=== PATIENT | female | born 1960 | race Two or more races ===

== ENCOUNTER 2016-11-03 08:18 | Emergency (ER) | payer OTHER ==
[~2016-11-03] VITALS: Ht 157.5 cm; Wt 117.5 kg
[~2016-11-03 08:18] MED LIST: ABILIFY30 MG PO; AGGRENOX1 CAPSULE PO; ALPHAGAN P100 DROP/5 RIGHT EYE; AMOXICILLIN500 MG PO; ANAPROX DS550 M1 PO; ASPIR 8181 M1 PO; ASPIRIN E.C.81 M1 PO; ASPIRIN81 M1 PO; AUGMENTIN875 MG PO; AVELOX400 MG PO; CALCARB 600 W-1 EACH PO; CALCIUM CARB1 TABLET PO; CEPHALEXIN500 MG PO; CETIRIZINE HCL10 M2 PO; CLARITHROMYCIN500 MG PO; CLONAZEPAM0.5 MG PO; COZAAR50 MG PO; CYMBALTA60 MG PO; Combivent IH; Cymbalta PO; DEXILANT30 MG PO; DILAUDID2 MG PO; DIOVAN80 MG PO; GABAPENTIN300 MG PO; GABAPENTIN600 MG PO; GLUCOPHAGE1000 MG PO; GLUCOPHAGE500 MG PO; Glucophage XR,Fortam PO; HUMALOG100 UNIT/1 SC; HUMALOG100 UNIT/2 SC; HYDROCHLOROTHIA25 MG PO; HYDROCODON-ACE1 EAC7 PO; IMITREX25 MG PO; K-DUR20 MEQ PO; KEFLEX500 MG PO; KLONOPIN0.5 M1 PO; KLOR-CON20 MEQ PO; Klonopin PO; LANTUS (UNITS)1 UNIT SC; LANTUS 10100 UNITS/ SC; LANTUS 3 M100 UNITS/ SC; LANTUS 3 M100 UNITS1 SC; LANTUS100 UNIT/1 SQ; LEVEMIR FL100 UNITS/ SC; LIDODERM 5% P1 PATCH TD; LO-DOSE ASPIRIN81 M1 PO; LOPRESSOR25 MG PO; LUMIGAN 0.50 DROP/22 BOTH EYES; MACROBID100 MG PO; METFORMIN HCL1000 M1 PO; METFORMIN HCL500 MG PO; METRONIDAZOLE500 MG PO; MONTELUKAST SOD10 MG PO; MOTRIN600 MG PO; NAPROSYN500 MG PO; NEURONTIN100 MG PO; NEURONTIN600 MG PO; NORCO 5/3251 TABLET PO; NOVOLOG (UNITS1 UNIT SC; NOVOLOG 10100 UNITS/ SC; NOVOLOG PE100 UNITS/ SC; NOVOLOG100 UNIT/2 SQ; OMEPRAZOLE20 MG PO; OMEPRAZOLE40 M1 PO; PERCOCET 5/31 TABLET PO; POTASSIUM CHLO20 ME1 PO; PREDNISONE20 MG PO; PRILOSEC20 MG PO; PRILOSEC40 MG PO; PROVENTIL,2.5 MG/3 M IH; PROVENTIL2.5 MG/3 M IH; Prilosec PO; QUETIAPINE FUMA25 MG PO; RANITIDINE HCL150 MG PO; SERTRALINE HCL50 MG PO; SIMVASTATIN20 M1 PO; SIMVASTATIN20 MG PO; SIMVASTIN; SKELAXIN800 MG PO; SUMATRIPTAN SUC25 MG PO; TRAMADOL HCL50 MG PO; TRAZODONE HCL50 MG PO; ULTRAM50 MG PO; VOLTAREN75 MG PO; ZANAFLEX2 M1 PO; ZANTAC150 MG PO; ZOCOR20 MG PO; ZOFRAN4 MG PO; Zocor PO
[2016-11-03 08:57] LABS: EOSINOPHIL COUNT 0.1 K/uL (0-0.3); HEMATOCRIT 37.4 % (36.0-46.0); IMMATURE GRANULOCYTE (%) 0.1 % (0.0-0.7); IMMATURE GRANULOCYTE COUNT 0.1 K/uL; LYMPHOCYTE COUNT 1.9 K/uL (1.0-2.8); MCH 29.4 PG (29.0-34.0); MCHC 31.8 G/DL (30.0-36.0); MCV 92.3 FL (83-99); MEAN PLAT.VOLUME 11.2 uM^3 (9.5-12.4); MONOCYTE (%) 3.8 % (3-12); MONOCYTE COUNT 0.3 K/uL (0-0.8); NEUTROPHIL (%) 70.6 % (45-76); NEUTROPHIL COUNT 5.6 K/uL (1.8-6.4); PLATELET COUNT 141 K/uL (156-360); RBC DIS.WIDTH-CV 13.5 % (11.8-14.6); RBC DIS.WIDTH-SD 44.2 % (39-53); RED BLOOD COUNT 4.05 M/uL (3.80-5.20)
[2016-11-03 09:05] LABS: INTER. NORMALIZED RATIO 1.1; PROTHROMBIN TIME 10.7 (9.2-11.2)
[2016-11-03 09:08] LABS: CHLORIDE 105 mEq/L (99-109); POTASSIUM 3.9 mEq/L (3.7-5.4); SODIUM 140 mEq/L (136-147)
[2016-11-03 09:10] LABS: GLUCOSE 214 mg/dL (70-99)
[2016-11-03 09:11] LABS: ANION GAP 11 MEQ/L (2-14)
[2016-11-03 09:12] LABS: TOTAL BILIRUBIN 0.4 mg/dL (0.0-1.0)
[2016-11-03 09:13] LABS: ALKALINE PHOSPHATASE 48 IU/L (3-129)
[2016-11-03 09:14] LABS: GFR ESTIMATE (CALCULATED) > 59 mL/min/
[2016-11-03 09:15] LABS: UREA NITROGEN (BUN) 18 mg/dL (9-23)
[2016-11-03 09:17] LABS: LIPASE 18 U/L (1.0-51.0)
[2016-11-03 10:01] LABS: ADD MIUA? YES; BILIRUBIN NEGATIVE; BLOOD MODERATE; COLOR YELLOW ((YELLOW)); GLUCOSE (STRIP) NEGATIVE; KETONES NEGATIVE; LEUKOCYTES NEGATIVE; NITRITE NEGATIVE; PH, URINE 6.5 (5-8); PROTEIN (STRIP) 30; SPECIFIC GRAVITY 1.021 (1.000-1.030)
[2016-11-03 10:16] LABS: BACTERIA 1+; CASTS NONE SEEN /LPF; CRYSTALS NONE SEEN; EPITHELIAL CELLS 1+; MUCUS NONE SEEN; PATHOLOGICAL CAST NONE SEEN; SMALL ROUND CELL NONE SEEN; UCUL ADDED? NO; WHITE BLOOD CELLS 0-5 /HPF (0-5); YEAST-LIKE CELL NONE SEEN
[2016-11-03] MEDS ORDERED: TYLENOL WITH C1 EACH PO (12:21)
[2016-11-03 12:39] VITALS: BP 108/64
== END 2016-11-03 12:53 | disposition home or self-care (01) ==
LOC: EME 08:18
PROVIDERS: Emergency Medicine
DX: N93.9 Abnormal uterine and vaginal bleeding, unspecified (principal); K80.20 Calculus of gallbladder without cholecystitis without obstruction; J45.909 Unspecified asthma, uncomplicated; I10 Essential (primary) hypertension; E78.5 Hyperlipidemia, unspecified; G89.29 Other chronic pain; E11.9 Type 2 diabetes mellitus without complications; Z79.4 Long term (current) use of insulin; Z79.82 Long term (current) use of aspirin; Z87.442 Personal history of urinary calculi
CPT/HCPCS: 74176; 76856; 80053; 81003; 83690; 85025; 85610; 99281; 99285; J7030

== ENCOUNTER 2016-11-14 06:38 | Emergency (ER) | payer OTHER ==
[~2016-11-14] VITALS: Ht 157.5 cm; Wt 118.3 kg
[~2016-11-14 06:38] MED LIST changes: +TYLENOL WITH C1 EACH PO
[2016-11-14 07:34] LABS: HEMATOCRIT 37.2 % (36.0-46.0); MCH 28.7 PG (29.0-34.0); MCHC 31.2 G/DL (30.0-36.0); MCV 92.1 FL (83-99); MEAN PLAT.VOLUME 11.6 uM^3 (9.5-12.4); PLATELET COUNT 139 K/uL (156-360); RBC DIS.WIDTH-CV 13.6 % (11.8-14.6); RBC DIS.WIDTH-SD 45.6 % (39-53); RED BLOOD COUNT 4.04 M/uL (3.80-5.20); WHITE BLOOD COUNT 7.6 K/uL (4.1-10.2)
[2016-11-14 07:44] LABS: ADD MIUA? YES; BILIRUBIN NEGATIVE; BLOOD MODERATE; GLUCOSE (STRIP) NEGATIVE; KETONES NEGATIVE; LEUKOCYTES NEGATIVE; NITRITE NEGATIVE; PH, URINE 6.5 (5-8); PROTEIN (STRIP) 30; SPECIFIC GRAVITY 1.025 (1.000-1.030)
[2016-11-14 07:46] LABS: COLOR LT YELLOW ((YELLOW))
[2016-11-14 08:01] LABS: QUANTITATIVE HCG < 4.0 MIU/ML
[2016-11-14 08:03] LABS: BACTERIA 1+ /HPF; CASTS NONE SEEN /LPF; CRYSTALS NONE SEEN; EPITHELIAL CELLS 1+ /HPF; MUCUS NONE SEEN /LPF; PATHOLOGICAL CAST NONE SEEN; SMALL ROUND CELL NONE SEEN; UCUL ADDED? NO; YEAST-LIKE CELL NONE SEEN
[2016-11-14 08:15] LABS: ANION GAP 10 MEQ/L (2-14); CHLORIDE 103 MEQ/L (99-109); SAMPLE HEMOLYSIS CHECK 0; SAMPLE ICTERIC CHECK 0; SAMPLE LIPEMIA CHECK 0; SODIUM 138 MEQ/L (136-147); TOTAL BILIRUBIN 0.3 MG/DL (0.0-1.0)
[2016-11-14 08:20] LABS: ALKALINE PHOSPHATASE 40 IU/L (3-129); GFR ESTIMATE (CALCULATED) > 59 mL/min/; GLUCOSE 195 mg/dL (70-99); UREA NITROGEN (BUN) 20 mg/dL (9-23)
[2016-11-14] MEDS ORDERED: BENTYL20 MG PO (10:11)
[2016-11-14] MEDS ORDERED: ZOFRAN ODT4 MG PO (10:11)
[2016-11-14] MEDS ORDERED: ULTRAM50 MG PO (10:11)
[2016-11-14 11:08] VITALS: BP 147/82
== END 2016-11-14 11:28 | disposition home or self-care (01) ==
LOC: EME 06:38
DX: R11.2 Nausea with vomiting, unspecified (principal); R19.7 Diarrhea, unspecified; I10 Essential (primary) hypertension; E11.9 Type 2 diabetes mellitus without complications; J45.909 Unspecified asthma, uncomplicated; G89.29 Other chronic pain; Z79.4 Long term (current) use of insulin; Z79.891 Long term (current) use of opiate analgesic; Z79.82 Long term (current) use of aspirin; Z86.14 Personal history of Methicillin resistant Staphylococcus aureus infection; Z87.442 Personal history of urinary calculi
CPT/HCPCS: 76705; 80053; 81003; 84702; 85027; 99281; 99285; J1885; J2405; J7030

== ENCOUNTER 2017-02-03 02:57 | Emergency (ER) | payer OTHER ==
[~2017-02-03] VITALS: Ht 157.5 cm; Wt 123.1 kg
[~2017-02-03 02:57] MED LIST changes: +BENTYL20 MG PO; +ZOFRAN ODT4 MG PO
[2017-02-03 04:04] LABS: HEMATOCRIT 37.7 % (36.0-46.0); MCHC 30.2 G/DL (30.0-36.0); MCV 92.6 FL (83-99); PLATELET COUNT 144 K/uL (156-360); RBC DIS.WIDTH-CV 13.9 % (11.8-14.6); RBC DIS.WIDTH-SD 46.9 % (39-53); RED BLOOD COUNT 4.07 M/uL (3.80-5.20); WHITE BLOOD COUNT 7.8 K/uL (4.1-10.2)
[2017-02-03 04:09] LABS: CHLORIDE 107 mEq/L (99-109); SODIUM 143 mEq/L (136-147)
[2017-02-03 04:11] LABS: GLUCOSE 136 mg/dL (70-99)
[2017-02-03 04:13] LABS: ANION GAP 11 MEQ/L (2-14); TOTAL BILIRUBIN 0.3 mg/dL (0.0-1.0)
[2017-02-03 04:15] LABS: ALKALINE PHOSPHATASE 45 IU/L (3-129); GFR ESTIMATE (CALCULATED) > 59 mL/min/
[2017-02-03 04:16] LABS: UREA NITROGEN (BUN) 20 mg/dL (9-23)
[2017-02-03 04:24] LABS: QUANTITATIVE HCG < 4.0 MIU/ML
[2017-02-03 05:46] LABS: ADD MIUA? YES; BILIRUBIN NEGATIVE; BLOOD SMALL; COLOR YELLOW ((YELLOW)); GLUCOSE (STRIP) NEGATIVE; KETONES NEGATIVE; LEUKOCYTES TRACE; NITRITE NEGATIVE; PROTEIN (STRIP) 100; SPECIFIC GRAVITY 1.019 (1.000-1.030); UROBILINOGEN 0.2 MG/DL (0.2-1.0)
[2017-02-03 05:55] LABS: BACTERIA RARE /HPF; EPITHELIAL CELLS 3+ /HPF; MUCUS 2+ /LPF; RED BLOOD CELLS 0-5 /HPF (0-5); UCUL ADDED? NO
[2017-02-03 06:12] LABS: LIPASE 20 U/L (1.0-51.0)
[2017-02-03] MEDS ORDERED: KEFLEX250 MG PO (07:33)
[2017-02-03] MEDS ORDERED: VENTOLIN HFA18 GM IH (07:33)
[2017-02-03 08:12] VITALS: BP 148/88
== END 2017-02-03 08:14 | disposition home or self-care (01) ==
LOC: EME 02:57
DX: J20.9 Acute bronchitis, unspecified (principal); N30.81 Other cystitis with hematuria; I10 Essential (primary) hypertension; E11.9 Type 2 diabetes mellitus without complications; E78.5 Hyperlipidemia, unspecified; Z87.442 Personal history of urinary calculi; Z86.73 Personal history of transient ischemic attack (TIA), and cerebral infarction without residual deficits; Z79.4 Long term (current) use of insulin; Z88.2 Allergy status to sulfonamides; Z88.6 Allergy status to analgesic agent
CPT/HCPCS: 71020; 80053; 81003; 83690; 84702; 85027; 94640; 99281; 99284

== ENCOUNTER 2017-03-25 14:52 | Emergency (ER) | payer OTHER ==
[~2017-03-25] VITALS: Ht 157.5 cm; Wt 131.7 kg
[~2017-03-25 14:52] MED LIST changes: +KEFLEX250 MG PO; +VENTOLIN HFA18 GM IH
[2017-03-25 15:54] LABS: EOSINOPHIL (%) 0.2 % (0-5); HEMATOCRIT 37.8 % (36.0-46.0); IMMATURE GRANULOCYTE (%) 0.2 % (0.0-0.7); INSTRUMENT ABS NEUTROPHIL CT 6.2 K/uL; LYMPHOCYTE COUNT 1.4 K/uL (1.0-2.8); MCHC 30.2 G/DL (30.0-36.0); MCV 89.4 FL (83-99); MEAN PLAT.VOLUME 11.1 uM^3 (9.5-12.4); MONOCYTE (%) 7.7 % (3-12); MONOCYTE COUNT 0.6 K/uL (0-0.8); NEUTROPHIL (%) 75.2 % (45-76); NEUTROPHIL COUNT 6.2 K/uL (1.8-6.4); PLATELET COUNT 149 K/uL (156-360); RBC DIS.WIDTH-CV 15.1 % (11.8-14.6); RED BLOOD COUNT 4.23 M/uL (3.80-5.20); WHITE BLOOD COUNT 8.2 K/uL (4.1-10.2)
[2017-03-25 16:02] LABS: CHLORIDE 105 mEq/L (99-109); POTASSIUM 4.1 mEq/L (3.7-5.4); SODIUM 138 mEq/L (136-147)
[2017-03-25 16:04] LABS: GLUCOSE 141 mg/dL (70-99)
[2017-03-25 16:06] LABS: ANION GAP 6 MEQ/L (2-14); INTER. NORMALIZED RATIO 1.1; PROTHROMBIN TIME 11.2 (9.2-11.2); PTT 25.9 (25-32)
[2017-03-25 16:08] LABS: GFR ESTIMATE (CALCULATED) > 59 mL/min/
[2017-03-25 16:09] LABS: UREA NITROGEN (BUN) 16 mg/dL (9-23)
[2017-03-25 16:14] LABS: TROP-I INTERPRETATION NEGATIVE; TROPONIN-I 0.03 ng/mL (0.0-0.30)
[2017-03-25] MEDS ORDERED: LEVAQUIN500 MG PO (17:30)
[2017-03-25 17:49] VITALS: BP 136/82
== END 2017-03-25 17:49 | disposition home or self-care (01) ==
LOC: EME 14:52
PROVIDERS: Emergency Medicine
DX: L03.116 Cellulitis of left lower limb (principal); L03.115 Cellulitis of right lower limb; J45.901 Unspecified asthma with (acute) exacerbation; E78.5 Hyperlipidemia, unspecified; I10 Essential (primary) hypertension; E11.9 Type 2 diabetes mellitus without complications; Z79.4 Long term (current) use of insulin; F32.9 Major depressive disorder, single episode, unspecified; F41.9 Anxiety disorder, unspecified; K21.9 Gastro-esophageal reflux disease without esophagitis; Z86.73 Personal history of transient ischemic attack (TIA), and cerebral infarction without residual deficits; Z79.82 Long term (current) use of aspirin; Z86.14 Personal history of Methicillin resistant Staphylococcus aureus infection
CPT/HCPCS: 71010; 80048; 83880; 84484; 85025; 85610; 85730; 93005; 93970; 94640; 99281; 99285

== ENCOUNTER 2017-05-01 17:00 | Inpatient (IN) | payer OTHER ==
[~2017-05-01] VITALS: Ht 157.5 cm; Wt 128.4 kg
[~2017-05-01 17:00] MED LIST changes: +LEVAQUIN500 MG PO
[2017-05-01 17:57] LABS: HEMATOCRIT 23.2 % (36.0-46.0); MCH 26.8 PG (29.0-34.0); MCHC 30.2 G/DL (30.0-36.0); MCV 88.9 FL (83-99); MEAN PLAT.VOLUME 12.1 uM^3 (9.5-12.4); PLATELET COUNT 211 K/uL (156-360); RBC DIS.WIDTH-CV 15.3 % (11.8-14.6); RBC DIS.WIDTH-SD 49.4 % (39-53); RED BLOOD COUNT 2.61 M/uL (3.80-5.20); WHITE BLOOD COUNT 11.7 K/uL (4.1-10.2)
[2017-05-01 18:05] LABS: CHLORIDE 102 mEq/L (99-109); POTASSIUM 4.3 mEq/L (3.7-5.4); SODIUM 139 mEq/L (136-147)
[2017-05-01 18:07] LABS: GLUCOSE 271 mg/dL (70-99)
[2017-05-01 18:08] LABS: ANION GAP 14 MEQ/L (2-14)
[2017-05-01 18:09] LABS: TOTAL BILIRUBIN 0.3 mg/dL (0.0-1.0)
[2017-05-01 18:10] LABS: ALKALINE PHOSPHATASE 53 IU/L (3-129)
[2017-05-01 18:11] LABS: GFR ESTIMATE (CALCULATED) 50 mL/min/
[2017-05-01 18:12] LABS: UREA NITROGEN (BUN) 24 mg/dL (9-23)
[2017-05-01 18:14] LABS: LIPASE 22 U/L (1.0-51.0)
[2017-05-01 20:11] LABS: INTER. NORMALIZED RATIO 1.1
[2017-05-01 20:13] LABS: PTT 30.7 SEC (25-37)
[2017-05-01] MEDS ORDERED: BENTYL20 MG PO (21:11)
[2017-05-01] MEDS ORDERED: LANTUS 10100 UNITS/ SC (21:17)
[2017-05-01] MEDS ORDERED: NOVOLOG100 UNIT/1 SC ×2 (21:18)
[2017-05-01] MEDS ORDERED: FUROSEMIDE20 MG PO (21:19)
[2017-05-01] MEDS ORDERED: K-DUR10 MEQ PO (21:20)
[2017-05-01] MEDS ORDERED: PULMICORT FLE180 MCG IH (21:20)
[2017-05-01] MEDS ORDERED: SIMVASTATIN20 MG PO (21:20)
[2017-05-01] MEDS ORDERED: ZANAFLEX2 MG PO (21:21)
[2017-05-01 21:47] VITALS: BP 143/85
[2017-05-01 22:05] LABS: POINT-OF-CARE METER ID UU14208750
[2017-05-01 23:54] VITALS: BP 140/65
[2017-05-01 23:54] LABS: POINT-OF-CARE METER ID UU14208750
[2017-05-02] VITALS (12 sets, daily range): BP systolic 100–141; BP diastolic 54–71
[2017-05-02 08:41] LABS: HEMATOCRIT 41.9 % (36.0-46.0)
[2017-05-02 16:53] LABS: ADD MIUA? YES; BILIRUBIN NEGATIVE; BLOOD MODERATE; COLOR YELLOW ((YELLOW)); GLUCOSE (STRIP) NEGATIVE; KETONES NEGATIVE; LEUKOCYTES NEGATIVE; NITRITE NEGATIVE; PROTEIN (STRIP) 30; SPECIFIC GRAVITY 1.014 (1.000-1.030); UROBILINOGEN 0.2 MG/DL (0.2-1.0)
[2017-05-02 16:59] LABS: BACTERIA RARE /HPF; EPITHELIAL CELLS RARE /HPF; MUCUS TRACE /LPF; RED BLOOD CELLS 0-5 /HPF (0-5); UCUL ADDED? NO; WHITE BLOOD CELLS 0-5 /HPF (0-5)
[2017-05-02 21:13] LABS: HEMATOCRIT 42.6 % (36.0-46.0); MCV 88.6 FL (83-99)
[2017-05-03 03:54] VITALS: BP 134/84
[2017-05-03 06:45] LABS: EOSINOPHIL (%) 1.3 % (0-5); HEMATOCRIT 42.4 % (36.0-46.0); MCH 26.4 PG (29.0-34.0); MCHC 29.2 G/DL (30.0-36.0); MCV 90.2 FL (83-99); MONOCYTE (%) 7.9 % (3-12); NEUTROPHIL (%) 71.2 % (45-76); RBC DIS.WIDTH-CV 14.9 % (11.8-14.6); RBC DIS.WIDTH-SD 49.7 % (39-53); WHITE BLOOD COUNT 8.3 K/uL (4.1-10.2)
[2017-05-03 06:46] LABS: EOSINOPHIL COUNT 0.1 K/uL (0-0.3); IMMATURE GRANULOCYTE (%) 0.4 % (0.0-0.7); INSTRUMENT ABS NEUTROPHIL CT 5.9 K/uL; LYMPHOCYTE COUNT 1.6 K/uL (1.0-2.8); MONOCYTE COUNT 0.7 K/uL (0-0.8); NEUTROPHIL COUNT 5.9 K/uL (1.8-6.4)
[2017-05-03 06:55] LABS: ALKALINE PHOSPHATASE 46 IU/L (3-129); ANION GAP 7 MEQ/L (2-14); CHLORIDE 100 MEQ/L (99-109); GFR ESTIMATE (CALCULATED) > 59 mL/min/; GLUCOSE 197 mg/dL (70-99); POTASSIUM 4.2 MEQ/L (3.7-5.4); SAMPLE HEMOLYSIS CHECK 0; SAMPLE ICTERIC CHECK 0; SAMPLE LIPEMIA CHECK 0; SODIUM 138 MEQ/L (136-147); TOTAL BILIRUBIN 0.4 MG/DL (0.0-1.0); UREA NITROGEN (BUN) 22 mg/dL (9-23)
[2017-05-03 06:59] LABS: MEAN PLAT.VOLUME 11.9 uM^3 (9.5-12.4); PLAT.SUFFICIENCY DECREASED
[2017-05-03 07:03] LABS: PLATELET COUNT 144 K/uL (156-360)
[2017-05-03 07:12] VITALS: BP 114/60
[2017-05-03] MEDS ORDERED: CIPRODEX OTIC7.5 ML LEFT EAR (08:54)
[2017-05-03] MEDS ORDERED: NOVOLOG PE100 UNITS/ SC (08:54)
[2017-05-03] MEDS ORDERED: LEVEMIR100 UNIT/2 SC (08:54)
== END 2017-05-03 10:57 | disposition home or self-care (01) | DRG 699 ==
LOC: EME 17:00 → EDOF 20:03 → 2EAST 20:03 → ENRESERV 20:08 → 2EAST 21:31
PROVIDERS: Emergency Medicine; Hospitalist; Internal Medicine; Physician Assistant Medical
PROC: 30233N1 Transfusion of Nonautologous Red Blood Cells into Peripheral Vein, Percutaneous Approach (ICD-10-PCS; principal; 2017-05-01)
DX: N36.8 Other specified disorders of urethra (principal); N17.9 Acute kidney failure, unspecified; N18.3 Chronic kidney disease, stage 3 (moderate); N93.8 Other specified abnormal uterine and vaginal bleeding; E11.65 Type 2 diabetes mellitus with hyperglycemia; E66.01 Morbid (severe) obesity due to excess calories; E11.22 Type 2 diabetes mellitus with diabetic chronic kidney disease; I12.9 Hypertensive chronic kidney disease with stage 1 through stage 4 chronic kidney disease, or unspecified chronic kidney disease; J44.9 Chronic obstructive pulmonary disease, unspecified; E78.5 Hyperlipidemia, unspecified; K21.9 Gastro-esophageal reflux disease without esophagitis; I69.354 Hemiplegia and hemiparesis following cerebral infarction affecting left non-dominant side; E86.0 Dehydration; F32.9 Major depressive disorder, single episode, unspecified; F41.9 Anxiety disorder, unspecified; E11.42 Type 2 diabetes mellitus with diabetic polyneuropathy; S80.10XA Contusion of unspecified lower leg, initial encounter; K27.9 Peptic ulcer, site unspecified, unspecified as acute or chronic, without hemorrhage or perforation; Z68.43 Body mass index [BMI] 50.0-59.9, adult
CPT/HCPCS: 70450; 71250; 72125; 72128; 72131; 73590; 74177; 80053; 81003; 82948; 83690; 85014; 85018; 85025; 85027; 85610; 85730; 86900; 86901; 86920; 94640; 94640 76; 94799; 99202; 99281; 99285; C9113; J1815; J7030; P9016

== ENCOUNTER 2017-05-11 15:30 | Inpatient (IN) | payer OTHER ==
[~2017-05-11] VITALS: Ht 157.5 cm; Wt 127.6 kg
[~2017-05-11 15:30] MED LIST changes: +CIPRODEX OTIC7.5 ML LEFT EAR; +FUROSEMIDE20 MG PO; +K-DUR10 MEQ PO; +LEVEMIR100 UNIT/2 SC; +NOVOLOG100 UNIT/1 SC; +PULMICORT FLE180 MCG IH; +ZANAFLEX2 MG PO
[2017-05-11 16:35] LABS: HEMATOCRIT 43.1 % (36.0-46.0); MCH 26.8 PG (29.0-34.0); MCHC 30.4 G/DL (30.0-36.0); MCV 88.1 FL (83-99); MEAN PLAT.VOLUME 11.2 uM^3 (9.5-12.4); PLATELET COUNT 126 K/uL (156-360); RED BLOOD COUNT 4.89 M/uL (3.80-5.20); WHITE BLOOD COUNT 6.9 K/uL (4.1-10.2)
[2017-05-11 16:44] LABS: CHLORIDE 101 mEq/L (99-109); POTASSIUM 4.1 mEq/L (3.7-5.4); SODIUM 140 mEq/L (136-147)
[2017-05-11 16:45] LABS: GLUCOSE 228 mg/dL (70-99)
[2017-05-11 16:47] LABS: ANION GAP 12 MEQ/L (2-14)
[2017-05-11 16:49] LABS: GFR ESTIMATE (CALCULATED) > 59 mL/min/
[2017-05-11 16:50] LABS: UREA NITROGEN (BUN) 16 mg/dL (9-23)
[2017-05-11] MEDS ORDERED: LANTUS 10100 UNITS/ SC ×2 (18:48)
[2017-05-11 21:44] VITALS: BP 153/78
[2017-05-11 23:11] LABS: POINT-OF-CARE METER ID UU14208750
[2017-05-11 23:40] VITALS: BP 140/76
[2017-05-12 04:09] VITALS: BP 135/78
[2017-05-12 06:24] LABS: HEMATOCRIT 41.2 % (36.0-46.0); MCH 27.4 PG (29.0-34.0); MCHC 29.9 G/DL (30.0-36.0); MCV 91.8 FL (83-99); MEAN PLAT.VOLUME 12.2 uM^3 (9.5-12.4); PLATELET COUNT 116 K/uL (156-360); RBC DIS.WIDTH-CV 15.5 % (11.8-14.6); RBC DIS.WIDTH-SD 51.8 % (39-53); RED BLOOD COUNT 4.49 M/uL (3.80-5.20); WHITE BLOOD COUNT 6.1 K/uL (4.1-10.2)
[2017-05-12 06:31] LABS: POINT-OF-CARE METER ID UU14208750
[2017-05-12 06:46] LABS: ALKALINE PHOSPHATASE 41 IU/L (3-129); ANION GAP 3 MEQ/L (2-14); CHLORIDE 100 MEQ/L (99-109); GFR ESTIMATE (CALCULATED) > 59 mL/min/; GLUCOSE 203 mg/dL (70-99); POTASSIUM 4.9 MEQ/L (3.7-5.4); SAMPLE HEMOLYSIS CHECK 0; SAMPLE ICTERIC CHECK 0; SAMPLE LIPEMIA CHECK 0; SODIUM 138 MEQ/L (136-147); TOTAL BILIRUBIN 0.3 MG/DL (0.0-1.0); UREA NITROGEN (BUN) 19 mg/dL (9-23)
[2017-05-12 07:40] VITALS: BP 148/79
[2017-05-12 12:00] VITALS: BP 113/56
[2017-05-12 12:08] LABS: POINT-OF-CARE METER ID UU14208750
[2017-05-12 15:35] VITALS: BP 121/79
[2017-05-12 16:11] LABS: POINT-OF-CARE METER ID UU14208750
[2017-05-12 19:37] VITALS: BP 129/61
[2017-05-12 23:46] VITALS: BP 143/72
[2017-05-13 03:04] VITALS: BP 128/78
[2017-05-13 06:47] LABS: POINT-OF-CARE METER ID UU14208750
[2017-05-13 07:38] LABS: EOSINOPHIL (%) 0 % (0-5); HEMATOCRIT 41.7 % (36.0-46.0); IMMATURE GRANULOCYTE (%) 0.4 % (0.0-0.7); INSTRUMENT ABS NEUTROPHIL CT 6.2 K/uL; LYMPHOCYTE COUNT 0.8 K/uL (1.0-2.8); MCH 27.5 PG (29.0-34.0); MCHC 30.7 G/DL (30.0-36.0); MCV 89.5 FL (83-99); MONOCYTE (%) 3.5 % (3-12); MONOCYTE COUNT 0.3 K/uL (0-0.8); NEUTROPHIL (%) 85.1 % (45-76); NEUTROPHIL COUNT 6.2 K/uL (1.8-6.4); PLATELET COUNT 120 K/uL (156-360); RBC DIS.WIDTH-CV 15.1 % (11.8-14.6); RED BLOOD COUNT 4.66 M/uL (3.80-5.20); WHITE BLOOD COUNT 7.3 K/uL (4.1-10.2)
[2017-05-13 08:06] LABS: ANION GAP 8 MEQ/L (2-14); CHLORIDE 94 MEQ/L (99-109); GFR ESTIMATE (CALCULATED) > 59 mL/min/; SAMPLE HEMOLYSIS CHECK 0; SAMPLE ICTERIC CHECK 0; SAMPLE LIPEMIA CHECK 0
[2017-05-13 08:09] LABS: GLUCOSE 311 mg/dL (70-99); SODIUM 131 MEQ/L (136-147); UREA NITROGEN (BUN) 33 mg/dL (9-23)
[2017-05-13 08:44] VITALS: BP 118/68
[2017-05-13 11:52] LABS: POINT-OF-CARE METER ID UU14208750
[2017-05-13 12:37] LABS: GLUCOSE 393 mg/dL (70-99)
[2017-05-13 16:58] VITALS: BP 168/80
[2017-05-13 17:42] LABS: GLUCOSE 427 mg/dL (70-99)
[2017-05-13 18:45] VITALS: BP 151/80
[2017-05-13 22:06] LABS: POINT-OF-CARE METER ID UU14208750
[2017-05-13 23:37] VITALS: BP 129/58
[2017-05-14 07:18] LABS: ANION GAP 9 MEQ/L (2-14); CHLORIDE 97 MEQ/L (99-109); GFR ESTIMATE (CALCULATED) > 59 mL/min/; SAMPLE HEMOLYSIS CHECK 0; SAMPLE ICTERIC CHECK 0; SAMPLE LIPEMIA CHECK 0; SODIUM 136 MEQ/L (136-147); UREA NITROGEN (BUN) 31 mg/dL (9-23)
[2017-05-14 07:19] LABS: GLUCOSE 180 mg/dL (70-99)
[2017-05-14 07:35] VITALS: BP 134/70
[2017-05-14 08:26] LABS: POINT-OF-CARE METER ID UU14208750
[2017-05-14 11:33] LABS: POINT-OF-CARE METER ID UU14208750
[2017-05-14 15:24] LABS: POINT-OF-CARE METER ID UU14208750
[2017-05-14 16:00] VITALS: BP 106/55
[2017-05-14 22:09] LABS: POINT-OF-CARE METER ID UU14208750
[2017-05-15 00:25] VITALS: BP 154/87
[2017-05-15 06:34] LABS: POINT-OF-CARE METER ID UU14208750
[2017-05-15 08:04] VITALS: BP 159/96
[2017-05-15 11:38] LABS: POINT-OF-CARE METER ID UU14208750
[2017-05-15 11:49] VITALS: BP 171/87
[2017-05-15 14:00] LABS: ANION GAP 8 MEQ/L (2-14); CHLORIDE 94 MEQ/L (99-109); POTASSIUM 4.5 MEQ/L (3.7-5.4); SAMPLE HEMOLYSIS CHECK 0; SAMPLE ICTERIC CHECK 0; SAMPLE LIPEMIA CHECK 0; SODIUM 135 MEQ/L (136-147)
[2017-05-15 14:06] LABS: GFR ESTIMATE (CALCULATED) > 59 mL/min/; GLUCOSE 235 mg/dL (70-99); UREA NITROGEN (BUN) 29 mg/dL (9-23)
[2017-05-15 14:10] LABS: TROP-I INTERPRETATION NEGATIVE; TROPONIN-I 0.03 ng/mL (0.0-0.30)
[2017-05-15 16:22] LABS: POINT-OF-CARE METER ID UU14208750
[2017-05-15 16:25] VITALS: BP 135/76
[2017-05-15 19:22] LABS: TROP-I INTERPRETATION NEGATIVE; TROPONIN-I 0.02 ng/mL (0.0-0.30)
[2017-05-15 21:34] LABS: POINT-OF-CARE METER ID UU14208750
[2017-05-15 23:22] VITALS: BP 131/65
[2017-05-16 01:05] LABS: TROP-I INTERPRETATION NEGATIVE; TROPONIN-I 0.03 ng/mL (0.0-0.30)
[2017-05-16 06:22] LABS: POINT-OF-CARE METER ID UU14208750
[2017-05-16 07:30] VITALS: BP 155/80
[2017-05-16 11:43] LABS: POINT-OF-CARE METER ID UU14208750
[2017-05-16] MEDS ORDERED: ADVAIR HFA120 INHAL1 IH (13:11)
[2017-05-16] MEDS ORDERED: LANTUS 10100 UNITS/ SC (13:11)
[2017-05-16] MEDS ORDERED: PREDNISONE10 MG PO (13:13)
== END 2017-05-16 15:07 | disposition home or self-care (01) | DRG 202 ==
LOC: EME 15:30 → 2EAST 20:16 → EDOF 20:16 → ENRESERV 20:17 → 2EAST 21:20
PROVIDERS: Internal Medicine; Nurse Practitioner Family; Student in an Organized Health Care Education/Training Program
DX: J45.31 Mild persistent asthma with (acute) exacerbation (principal); E87.5 Hyperkalemia; I07.1 Rheumatic tricuspid insufficiency; R16.0 Hepatomegaly, not elsewhere classified; E11.65 Type 2 diabetes mellitus with hyperglycemia; J44.1 Chronic obstructive pulmonary disease with (acute) exacerbation; B37.0 Candidal stomatitis; E66.01 Morbid (severe) obesity due to excess calories; F41.9 Anxiety disorder, unspecified; E78.5 Hyperlipidemia, unspecified; I10 Essential (primary) hypertension; K80.20 Calculus of gallbladder without cholecystitis without obstruction; G47.00 Insomnia, unspecified; M54.30 Sciatica, unspecified side; F32.9 Major depressive disorder, single episode, unspecified; R60.0 Localized edema; G89.29 Other chronic pain; R63.3 Feeding difficulties; G40.909 Epilepsy, unspecified, not intractable, without status epilepticus; M54.9 Dorsalgia, unspecified; K21.9 Gastro-esophageal reflux disease without esophagitis; M19.90 Unspecified osteoarthritis, unspecified site; Z77.22 Contact with and (suspected) exposure to environmental tobacco smoke (acute) (chronic); Z79.4 Long term (current) use of insulin; Z91.14 Patient's other noncompliance with medication regimen; Z86.73 Personal history of transient ischemic attack (TIA), and cerebral infarction without residual deficits; Z88.6 Allergy status to analgesic agent; Z88.2 Allergy status to sulfonamides; S20.219D Contusion of unspecified front wall of thorax, subsequent encounter; Z87.442 Personal history of urinary calculi
CPT/HCPCS: 71010; 71020; 80048; 80053; 82948; 83880; 84484; 84999; 85025; 85027; 93005; 93306; 94640; 94640 76; 94799; 99202; 99281; 99285; J0456; J1650; J1815; J1940; J2920; J7030; J7512; J7644

== ENCOUNTER 2017-07-10 13:43 | Emergency (ER) | payer OTHER ==
[~2017-07-10] VITALS: Ht 157.5 cm; Wt 122.7 kg
[~2017-07-10 13:43] MED LIST changes: +ADVAIR HFA120 INHAL1 IH; +PREDNISONE10 MG PO
[2017-07-10 16:06] VITALS: BP 124/62
== END 2017-07-10 16:09 | disposition home or self-care (01) ==
LOC: EME 13:43
DX: M77.11 Lateral epicondylitis, right elbow (principal); E11.40 Type 2 diabetes mellitus with diabetic neuropathy, unspecified; Z79.4 Long term (current) use of insulin; J45.909 Unspecified asthma, uncomplicated; Z86.73 Personal history of transient ischemic attack (TIA), and cerebral infarction without residual deficits; Z79.82 Long term (current) use of aspirin; Z88.8 Allergy status to other drugs, medicaments and biological substances
CPT/HCPCS: 73080; 99281; 99284

== ENCOUNTER 2017-07-30 13:06 | Emergency (ER) | payer OTHER ==
[~2017-07-30] VITALS: Ht 157.5 cm; Wt 124.4 kg
[2017-07-30 14:13] VITALS: BP 125/96
== END 2017-07-30 14:10 | disposition home or self-care (01) ==
LOC: EME 13:06
DX: M77.11 Lateral epicondylitis, right elbow (principal); I10 Essential (primary) hypertension; E78.5 Hyperlipidemia, unspecified; E11.40 Type 2 diabetes mellitus with diabetic neuropathy, unspecified; Z79.4 Long term (current) use of insulin; Z79.82 Long term (current) use of aspirin
CPT/HCPCS: 99281; 99283

== ENCOUNTER 2017-08-27 21:21 | Inpatient (IN) | payer OTHER ==
[~2017-08-27] VITALS: Ht 157.5 cm; Wt 126.9 kg
[2017-08-27 22:07] LABS: EOSINOPHIL (%) 0.1 % (0-5); HEMATOCRIT 33.3 % (36.0-46.0); IMMATURE GRANULOCYTE (%) 0.4 % (0.0-0.7); INSTRUMENT ABS NEUTROPHIL CT 5.2 K/uL; LYMPHOCYTE COUNT 0.9 K/uL (1.0-2.8); MCH 29.7 PG (29.0-34.0); MCHC 31.2 G/DL (30.0-36.0); MCV 95.1 FL (83-99); MEAN PLAT.VOLUME 11.4 uM^3 (9.5-12.4); MONOCYTE (%) 7.9 % (3-12); MONOCYTE COUNT 0.5 K/uL (0-0.8); NEUTROPHIL (%) 78.1 % (45-76); NEUTROPHIL COUNT 5.2 K/uL (1.8-6.4); PLATELET COUNT 123 K/uL (156-360); RBC DIS.WIDTH-CV 13.2 % (11.8-14.6); RBC DIS.WIDTH-SD 45.9 % (39-53); WHITE BLOOD COUNT 6.7 K/uL (4.1-10.2)
[2017-08-27 22:15] LABS: CHLORIDE 103 mEq/L (99-109); POTASSIUM 3.7 mEq/L (3.7-5.4); SODIUM 137 mEq/L (136-147)
[2017-08-27 22:17] LABS: GLUCOSE 115 mg/dL (70-99)
[2017-08-27 22:18] LABS: ANION GAP 8 MEQ/L (2-14)
[2017-08-27 22:21] LABS: GFR ESTIMATE (CALCULATED) > 59 mL/min/
[2017-08-27 22:22] LABS: UREA NITROGEN (BUN) 14 mg/dL (9-23)
[2017-08-27 22:40] LABS: MAGNESIUM 1.6 mg/dL (1.3-2.7)
[2017-08-27 22:48] LABS: ADD MIUA? YES; BILIRUBIN NEGATIVE; BLOOD SMALL; COLOR YELLOW ((YELLOW)); GLUCOSE (STRIP) NEGATIVE; KETONES NEGATIVE; LEUKOCYTES NEGATIVE; NITRITE NEGATIVE; PROTEIN (STRIP) 100; SPECIFIC GRAVITY 1.013 (1.000-1.030); UROBILINOGEN 0.2 MG/DL (0.2-1.0)
[2017-08-27 22:53] LABS: BACTERIA RARE /HPF; EPITHELIAL CELLS RARE /HPF; MUCUS NONE SEEN /LPF; RED BLOOD CELLS 0-5 /HPF (0-5); UCUL ADDED? NO; WHITE BLOOD CELLS 0-5 /HPF (0-5)
[2017-08-28] MEDS ORDERED: K-DUR10 MEQ PO (01:18)
[2017-08-28] MEDS ORDERED: ATARAX,VISTARIL25 MG PO (01:19)
[2017-08-28] MEDS ORDERED: RANITIDINE HCL150 MG PO (01:20)
[2017-08-28] MEDS ORDERED: NOVOLOG PE100 UNITS/ SC ×3 (01:30→01:31)
[2017-08-28 03:55] VITALS: BP 124/60
[2017-08-28 05:08] VITALS: BP 110/75
[2017-08-28 07:19] VITALS: BP 122/68
[2017-08-28 08:25] LABS: POINT-OF-CARE METER ID UU14162513
[2017-08-28 12:29] VITALS: BP 119/59
[2017-08-28 12:42] LABS: POINT-OF-CARE METER ID UU14162513
[2017-08-28] MEDS ORDERED: AGGRENOX1 CAPSULE PO (17:23)
[2017-08-28 17:49] LABS: POINT-OF-CARE METER ID UU14162513
[2017-08-28 17:54] VITALS: BP 168/82
[2017-08-28 19:00] VITALS: BP 134/64
[2017-08-28 21:11] LABS: POINT-OF-CARE METER ID UU14162513
[2017-08-29] VITALS: BP 120/65
[2017-08-29 03:19] VITALS: BP 118/58
[2017-08-29 05:37] LABS: HEMATOCRIT 35.8 % (36.0-46.0); MCH 29.3 PG (29.0-34.0); MCHC 30.7 G/DL (30.0-36.0); MCV 95.2 FL (83-99); MEAN PLAT.VOLUME 11.3 uM^3 (9.5-12.4); PLATELET COUNT 126 K/uL (156-360); RBC DIS.WIDTH-CV 13.2 % (11.8-14.6); RBC DIS.WIDTH-SD 46.8 % (39-53); RED BLOOD COUNT 3.76 M/uL (3.80-5.20); WHITE BLOOD COUNT 5.1 K/uL (4.1-10.2)
[2017-08-29 06:05] LABS: ANION GAP 7 MEQ/L (2-14); CHLORIDE 100 MEQ/L (99-109); GFR ESTIMATE (CALCULATED) 55 mL/min/; GLUCOSE 284 mg/dL (70-99); POTASSIUM 4.5 MEQ/L (3.7-5.4); SAMPLE HEMOLYSIS CHECK 0; SAMPLE ICTERIC CHECK 0; SAMPLE LIPEMIA CHECK 0; SODIUM 135 MEQ/L (136-147); UREA NITROGEN (BUN) 26 mg/dL (9-23)
[2017-08-29 08:36] LABS: POINT-OF-CARE METER ID UU13113700
[2017-08-29 12:41] VITALS: BP 133/74
[2017-08-29 12:42] LABS: POINT-OF-CARE METER ID UU14162513
[2017-08-29 16:25] VITALS: BP 106/59
[2017-08-29 17:25] LABS: POINT-OF-CARE METER ID UU13113700
[2017-08-29 19:30] VITALS: BP 125/71
[2017-08-29 21:27] LABS: POINT-OF-CARE METER ID UU14162513
[2017-08-29 23:51] VITALS: BP 136/64
[2017-08-30] VITALS (7 sets, daily range): BP systolic 118–142; BP diastolic 55–76
[2017-08-30 08:34] LABS: POINT-OF-CARE METER ID UU13113700
[2017-08-30 08:49] LABS: METH RESISTANT S AUREUS PCR NEGATIVE (NEGATIVE)
[2017-08-30 08:51] LABS: PROBE CHECK PASS; SPECIMEN PROCESSING CONTROL PASS
[2017-08-30 13:14] LABS: GLUCOSE 433 mg/dL (70-99)
[2017-08-30 14:20] LABS: POINT-OF-CARE METER ID UU13113831
[2017-08-30 17:04] LABS: GLUCOSE 488 mg/dL (70-99)
[2017-08-30 18:25] LABS: POINT-OF-CARE METER ID UU14162513
[2017-08-30 21:01] LABS: POINT-OF-CARE METER ID UU14162513
[2017-08-31 02:09] LABS: POINT-OF-CARE METER ID UU14162513
[2017-08-31 03:10] VITALS: BP 144/75
[2017-08-31 05:25] LABS: HEMATOCRIT 35.1 % (36.0-46.0); MCH 30.1 PG (29.0-34.0); MCHC 31.1 G/DL (30.0-36.0); MEAN PLAT.VOLUME 11.8 uM^3 (9.5-12.4); PLATELET COUNT 118 K/uL (156-360); RBC DIS.WIDTH-CV 13.3 % (11.8-14.6); RBC DIS.WIDTH-SD 47.7 % (39-53); RED BLOOD COUNT 3.62 M/uL (3.80-5.20); WHITE BLOOD COUNT 11.6 K/uL (4.1-10.2)
[2017-08-31 05:48] LABS: ANION GAP 5 MEQ/L (2-14); CHLORIDE 99 MEQ/L (99-109); GFR ESTIMATE (CALCULATED) 49 mL/min/; GLUCOSE 365 mg/dL (70-99); POTASSIUM 5.2 MEQ/L (3.7-5.4); SAMPLE HEMOLYSIS CHECK 0; SAMPLE ICTERIC CHECK 0; SAMPLE LIPEMIA CHECK 0; SODIUM 134 MEQ/L (136-147); UREA NITROGEN (BUN) 35 mg/dL (9-23)
[2017-08-31 09:00] LABS: POINT-OF-CARE METER ID UU13113700
[2017-08-31 11:56] VITALS: BP 133/65
[2017-08-31 12:29] LABS: POINT-OF-CARE METER ID UU14162513
[2017-08-31 16:16] VITALS: BP 125/69
[2017-08-31 17:13] LABS: POINT-OF-CARE METER ID UU14162513
[2017-08-31 20:00] VITALS: BP 142/67
[2017-08-31 21:37] LABS: POINT-OF-CARE METER ID UU13113700
[2017-08-31 23:41] VITALS: BP 147/70
[2017-09-01 03:47] VITALS: BP 127/67
[2017-09-01 07:26] VITALS: BP 135/70
[2017-09-01 08:36] LABS: POINT-OF-CARE METER ID UU13113700
[2017-09-01] MEDS ORDERED: LEVOFLOXACIN500 MG PO (10:57)
[2017-09-01] MEDS ORDERED: HYDROCORTISONE30 G2 PR (11:00)
[2017-09-01] MEDS ORDERED: PREDNISONE10 MG PO (11:05)
[2017-09-01 11:49] VITALS: BP 138/65
[2017-09-01 15:18] VITALS: BP 143/67
[2017-09-02 21:22] LABS: POINT-OF-CARE METER ID UU13113831
[2017-09-02 21:22] LABS: POINT-OF-CARE METER ID UU13113700
[2017-09-02 21:48] LABS: POINT-OF-CARE METER ID UU13113831
== END 2017-09-01 16:17 | disposition home health service (06) | DRG 189 ==
LOC: EME → EDBD 21:21 → EME 21:21 → EDOF 08-28 02:36 → 5WEST 08-28 02:36 → ENRESERV 08-28 02:37 → 5WEST 08-28 03:29 → ENPENDDIS 09-01 → ENRESERV 09-01 00:24 → CANRESERV 09-01 00:24 → 5WEST 09-01 16:17
PROVIDERS: Emergency Medicine; Hospitalist; Internal Medicine
PROC: 5A09357 Assistance with Respiratory Ventilation, Less than 24 Consecutive Hours, Continuous Positive Airway Pressure (ICD-10-PCS; principal; 2017-08-28)
DX: J96.21 Acute and chronic respiratory failure with hypoxia (principal); J44.1 Chronic obstructive pulmonary disease with (acute) exacerbation; J45.31 Mild persistent asthma with (acute) exacerbation; J44.0 Chronic obstructive pulmonary disease with (acute) lower respiratory infection; J20.9 Acute bronchitis, unspecified; E11.22 Type 2 diabetes mellitus with diabetic chronic kidney disease; E11.65 Type 2 diabetes mellitus with hyperglycemia; T38.0X5A Adverse effect of glucocorticoids and synthetic analogues, initial encounter; I12.9 Hypertensive chronic kidney disease with stage 1 through stage 4 chronic kidney disease, or unspecified chronic kidney disease; N18.3 Chronic kidney disease, stage 3 (moderate); G47.33 Obstructive sleep apnea (adult) (pediatric); E78.5 Hyperlipidemia, unspecified; K21.9 Gastro-esophageal reflux disease without esophagitis; F32.9 Major depressive disorder, single episode, unspecified; M19.90 Unspecified osteoarthritis, unspecified site; E66.01 Morbid (severe) obesity due to excess calories; Z68.43 Body mass index [BMI] 50.0-59.9, adult; Z99.81 Dependence on supplemental oxygen; Z79.4 Long term (current) use of insulin; Z79.82 Long term (current) use of aspirin; Z87.442 Personal history of urinary calculi; Z86.73 Personal history of transient ischemic attack (TIA), and cerebral infarction without residual deficits; Z88.2 Allergy status to sulfonamides; Z88.5 Allergy status to narcotic agent
CPT/HCPCS: 71020; 80048; 81003; 82948; 83605; 83735; 83880; 84999; 85025; 85027; 87040; 87502; 87641; 94640; 94640 76; 94660; 94667; 94668; 94760; 94799; 99202; 99281; 99284; G8978 GP CH; G8979 GP CH; G8980 GP CH; J1650; J1815; J1940; J1956; J2920; J2930; J7030

== ENCOUNTER 2018-01-02 08:15 | Emergency (ER) | payer OTHER ==
[~2018-01-02] VITALS: Ht 157.5 cm; Wt 124.5 kg
[~2018-01-02 08:15] MED LIST changes: +ATARAX,VISTARIL25 MG PO; +HYDROCORTISONE30 G2 PR; +LEVOFLOXACIN500 MG PO
[2018-01-02 09:18] LABS: BASOPHIL (%) 0.3 % (0-1); EOSINOPHIL (%) 0.6 % (0-5); HEMATOCRIT 35.1 % (36.0-46.0); HEMOGLOBIN 11.1 G/DL (11.9-15.5); IMMATURE GRANULOCYTE (%) 0.4 % (0.0-0.7); LYMPHOCYTE (%) 16.7 % (15-42); LYMPHOCYTE COUNT 1.2 K/uL (1.0-2.8); MCH 29.5 PG (29.0-34.0); MCHC 31.6 G/DL (30.0-36.0); MCV 93.4 FL (83-99); MONOCYTE (%) 5.5 % (3-12); MONOCYTE COUNT 0.4 K/uL (0-0.8); NEUTROPHIL (%) 76.5 % (45-76); NEUTROPHIL COUNT 5.4 K/uL (1.8-6.4); PLATELET COUNT 127 K/uL (156-360); RBC DIS.WIDTH-CV 12.9 % (11.8-14.6); RBC DIS.WIDTH-SD 44.3 % (39-53); RED BLOOD COUNT 3.76 M/uL (3.80-5.20); WHITE BLOOD COUNT 7.1 K/uL (4.1-10.2)
[2018-01-02 09:28] LABS: CHLORIDE 102 mEq/L (99-109); POTASSIUM 4.1 mEq/L (3.7-5.4); SODIUM 140 mEq/L (136-147)
[2018-01-02 09:29] LABS: GLUCOSE 121 mg/dL (70-99)
[2018-01-02 09:33] LABS: CREATININE 0.8 mg/dL (0.6-1.3); GFR ESTIMATE (CALCULATED) > 59 mL/min/
[2018-01-02 09:34] LABS: UREA NITROGEN (BUN) 12 mg/dL (9-23)
[2018-01-02 09:44] LABS: APPEARANCE SL.HAZY ((CLEAR)); BILIRUBIN NEGATIVE; BLOOD SMALL; COLOR YELLOW ((YELLOW)); GLUCOSE (STRIP) NEGATIVE; KETONES NEGATIVE; LEUKOCYTES NEGATIVE; NITRITE NEGATIVE; PROTEIN (STRIP) 100; SPECIFIC GRAVITY 1.012 (1.000-1.030); UROBILINOGEN 0.2 MG/DL (0.2-1.0)
[2018-01-02 09:48] LABS: BACTERIA NONE SEEN /HPF; EPITHELIAL CELLS 1+ /HPF; MUCUS TRACE /LPF; RED BLOOD CELLS 0-5 /HPF (0-5); WHITE BLOOD CELLS 0-5 /HPF (0-5)
[2018-01-02] MEDS ORDERED: PERCOCET 5/31 TABLET PO (12:03)
[2018-01-02 12:53] VITALS: BP 142/77
[2018-01-03] MEDS ORDERED: ULTRAM50 MG PO (03:31)
== END 2018-01-02 12:55 | disposition home or self-care (01) ==
LOC: EME 08:15
PROVIDERS: Emergency Medicine
DX: K80.20 Calculus of gallbladder without cholecystitis without obstruction (principal); M48.061 Spinal stenosis, lumbar region without neurogenic claudication; N85.8 Other specified noninflammatory disorders of uterus; E11.9 Type 2 diabetes mellitus without complications; I10 Essential (primary) hypertension; K21.9 Gastro-esophageal reflux disease without esophagitis; E78.5 Hyperlipidemia, unspecified; F41.9 Anxiety disorder, unspecified; F32.9 Major depressive disorder, single episode, unspecified; Z99.81 Dependence on supplemental oxygen; Z79.4 Long term (current) use of insulin; Z79.82 Long term (current) use of aspirin; Z79.51 Long term (current) use of inhaled steroids; Z87.440 Personal history of urinary (tract) infections; Z86.73 Personal history of transient ischemic attack (TIA), and cerebral infarction without residual deficits; Z87.442 Personal history of urinary calculi; Z86.14 Personal history of Methicillin resistant Staphylococcus aureus infection; Z90.49 Acquired absence of other specified parts of digestive tract; Z88.5 Allergy status to narcotic agent; Z88.2 Allergy status to sulfonamides; Z88.6 Allergy status to analgesic agent
CPT/HCPCS: 74176; 80048; 81003; 85025; 99281; 99285; J1885; J2405; J7030

== ENCOUNTER 2018-01-03 01:46 | Emergency (ER) | payer OTHER ==
[~2018-01-03] VITALS: Ht 157.5 cm; Wt 124.3 kg
[2018-01-03] MEDS ORDERED: ULTRAM50 MG PO (03:31)
[2018-01-03 03:47] VITALS: BP 177/89
[2018-01-04] MEDS ORDERED: LANTUS 10100 UNITS/ SC (14:44)
[2018-01-04] MEDS ORDERED: MOTRIN800 MG PO (14:47)
[2018-01-04] MEDS ORDERED: AMOXICILLIN500 MG PO (14:47)
[2018-01-04] MEDS ORDERED: FLUOXETINE HCL10 MG PO (14:49)
== END 2018-01-03 03:48 | disposition home or self-care (01) ==
LOC: EME 01:46
DX: M54.5 Low back pain (principal); I10 Essential (primary) hypertension; E78.5 Hyperlipidemia, unspecified; E11.9 Type 2 diabetes mellitus without complications; K21.9 Gastro-esophageal reflux disease without esophagitis; F32.9 Major depressive disorder, single episode, unspecified; F41.9 Anxiety disorder, unspecified; R56.9 Unspecified convulsions; Z87.442 Personal history of urinary calculi; Z86.73 Personal history of transient ischemic attack (TIA), and cerebral infarction without residual deficits; Z86.14 Personal history of Methicillin resistant Staphylococcus aureus infection; Z79.4 Long term (current) use of insulin; Z79.82 Long term (current) use of aspirin; Z88.5 Allergy status to narcotic agent; Z88.2 Allergy status to sulfonamides; Z88.6 Allergy status to analgesic agent; Z88.8 Allergy status to other drugs, medicaments and biological substances
CPT/HCPCS: 82948; 99281; 99284

== ENCOUNTER 2018-01-04 10:35 | Observation (INO) | payer OTHER ==
[~2018-01-04] VITALS: Ht 157.5 cm; Wt 119.4 kg
[2018-01-04 11:30] LABS: HEMATOCRIT 34.4 % (36.0-46.0); HEMOGLOBIN 11.3 G/DL (11.9-15.5); MCH 30.3 PG (29.0-34.0); MCHC 32.8 G/DL (30.0-36.0); MCV 92.2 FL (83-99); PLATELET COUNT 141 K/uL (156-360); RBC DIS.WIDTH-CV 12.9 % (11.8-14.6); RBC DIS.WIDTH-SD 43.1 % (39-53); RED BLOOD COUNT 3.73 M/uL (3.80-5.20); WHITE BLOOD COUNT 8.4 K/uL (4.1-10.2)
[2018-01-04 11:39] LABS: ALBUMIN 3.7 g/dL (3.2-4.8); CHLORIDE 102 mEq/L (99-109); POTASSIUM 4.1 mEq/L (3.7-5.4); SODIUM 140 mEq/L (136-147)
[2018-01-04 11:42] LABS: GLUCOSE 118 mg/dL (70-99); TOTAL PROTEIN 7.5 g/dL (6.4-8.3)
[2018-01-04 11:45] LABS: ALKALINE PHOSPHATASE 49 IU/L (3-129); CREATININE 0.8 mg/dL (0.6-1.3); GFR ESTIMATE (CALCULATED) > 59 mL/min/
[2018-01-04 11:46] LABS: UREA NITROGEN (BUN) 12 mg/dL (9-23)
[2018-01-04 11:47] LABS: AST (GOT) 18 IU/L (2-34); DIRECT BILIRUBIN 0.2 mg/dL (0.0-0.3)
[2018-01-04 11:48] LABS: ALT (GPT) 13 IU/L (3-49)
[2018-01-04 11:49] LABS: LIPASE 12 U/L (1.0-51.0)
[2018-01-04 11:55] LABS: TOTAL BILIRUBIN 0.5 mg/dL (0.0-1.0)
[2018-01-04 13:05] LABS: APPEARANCE CLOUDY ((CLEAR)); BILIRUBIN NEGATIVE; BLOOD NEGATIVE; COLOR YELLOW ((YELLOW)); GLUCOSE (STRIP) NEGATIVE; KETONES NEGATIVE; LEUKOCYTES NEGATIVE; NITRITE NEGATIVE; PROTEIN (STRIP) >=500; SPECIFIC GRAVITY 1.015 (1.000-1.030); UROBILINOGEN 0.2 MG/DL (0.2-1.0)
[2018-01-04 13:09] LABS: BACTERIA NONE SEEN /HPF; EPITHELIAL CELLS 1+ /HPF; MUCUS TRACE /LPF; RED BLOOD CELLS 0-5 /HPF (0-5); UCUL ADDED? NO; WHITE BLOOD CELLS 0-5 /HPF (0-5)
[2018-01-04] MEDS ORDERED: LANTUS 10100 UNITS/ SC (14:44)
[2018-01-04] MEDS ORDERED: AMOXICILLIN500 MG PO (14:47)
[2018-01-04] MEDS ORDERED: MOTRIN800 MG PO (14:47)
[2018-01-04] MEDS ORDERED: FLUOXETINE HCL10 MG PO (14:49)
[2018-01-04 16:00] VITALS: BP 186/79
[2018-01-04 20:00] VITALS: BP 175/83
[2018-01-04 23:14] VITALS: BP 117/55
[2018-01-05 05:43] LABS: HEMATOCRIT 34.5 % (36.0-46.0); HEMOGLOBIN 10.6 G/DL (11.9-15.5); MCH 28.8 PG (29.0-34.0); MCHC 30.7 G/DL (30.0-36.0); MCV 93.8 FL (83-99); PLATELET COUNT 136 K/uL (156-360); RBC DIS.WIDTH-SD 44.5 % (39-53); RED BLOOD COUNT 3.68 M/uL (3.80-5.20)
[2018-01-05 06:03] LABS: ALBUMIN 3.4 G/DL (3.2-4.8); ALKALINE PHOSPHATASE 37 IU/L (3-129); ALT (GPT) 10 IU/L (3-49); AST (GOT) 13 IU/L (2-34); CHLORIDE 99 MEQ/L (99-109); CREATININE 0.8 MG/DL (0.6-1.3); GFR ESTIMATE (CALCULATED) > 59 mL/min/; GLUCOSE 105 mg/dL (70-99); POTASSIUM 3.8 MEQ/L (3.7-5.4); SODIUM 138 MEQ/L (136-147); TOTAL BILIRUBIN 0.4 MG/DL (0.0-1.0); TOTAL PROTEIN 6.2 G/DL (6.4-8.3); UREA NITROGEN (BUN) 10 mg/dL (9-23)
[2018-01-05 08:52] VITALS: BP 157/70
[2018-01-05 12:37] VITALS: BP 160/80
[2018-01-05 16:15] VITALS: BP 158/66
[2018-01-05 18:28] VITALS: BP 137/63
[2018-01-05 23:18] VITALS: BP 142/65
[2018-01-06 04:07] VITALS: BP 114/57
[2018-01-06 05:54] LABS: BASOPHIL (%) 0.3 % (0-1); EOSINOPHIL (%) 0.4 % (0-5); HEMATOCRIT 32.6 % (36.0-46.0); IMMATURE GRANULOCYTE (%) 0.4 % (0.0-0.7); LYMPHOCYTE (%) 19.6 % (15-42); LYMPHOCYTE COUNT 1.5 K/uL (1.0-2.8); MCH 28.7 PG (29.0-34.0); MCHC 30.7 G/DL (30.0-36.0); MCV 93.4 FL (83-99); MONOCYTE (%) 7.5 % (3-12); MONOCYTE COUNT 0.6 K/uL (0-0.8); NEUTROPHIL (%) 71.8 % (45-76); NEUTROPHIL COUNT 5.5 K/uL (1.8-6.4); PLATELET COUNT 118 K/uL (156-360); RBC DIS.WIDTH-SD 44.5 % (39-53); RED BLOOD COUNT 3.49 M/uL (3.80-5.20); WHITE BLOOD COUNT 7.6 K/uL (4.1-10.2)
[2018-01-06 07:54] LABS: ALBUMIN 3.4 G/DL (3.2-4.8); ALKALINE PHOSPHATASE 36 IU/L (3-129); ALT (GPT) 10 IU/L (3-49); AST (GOT) 15 IU/L (2-34); CHLORIDE 103 MEQ/L (99-109); CREATININE 0.8 MG/DL (0.6-1.3); GFR ESTIMATE (CALCULATED) > 59 mL/min/; GLUCOSE 96 mg/dL (70-99); POTASSIUM 4.1 MEQ/L (3.7-5.4); SODIUM 139 MEQ/L (136-147); TOTAL PROTEIN 6.2 G/DL (6.4-8.3); UREA NITROGEN (BUN) 10 mg/dL (9-23)
[2018-01-06 07:55] LABS: TOTAL BILIRUBIN 0.3 MG/DL (0.0-1.0)
[2018-01-06 08:30] VITALS: BP 103/90
[2018-01-06 12:21] VITALS: BP 171/74
[2018-01-06] MEDS ORDERED: ULTRAM50 MG PO (16:35)
[2018-01-06] MEDS ORDERED: ZANAFLEX2 MG PO (16:35)
== END 2018-01-06 16:57 | disposition home or self-care (01) ==
LOC: EME 10:35 → EDOF 14:09 → ENRESERV 14:11 → EDOF 14:33 → ENRESERV 14:44 → 5WEST 15:55
PROVIDERS: Emergency Medicine; Hospitalist
DX: R11.2 Nausea with vomiting, unspecified (principal); R10.11 Right upper quadrant pain; R10.31 Right lower quadrant pain; Z86.73 Personal history of transient ischemic attack (TIA), and cerebral infarction without residual deficits; E11.9 Type 2 diabetes mellitus without complications; J44.9 Chronic obstructive pulmonary disease, unspecified; J96.10 Chronic respiratory failure, unspecified whether with hypoxia or hypercapnia; Z99.81 Dependence on supplemental oxygen; E78.5 Hyperlipidemia, unspecified; E66.01 Morbid (severe) obesity due to excess calories; Z68.45 Body mass index [BMI] 70 or greater, adult; I10 Essential (primary) hypertension; K21.9 Gastro-esophageal reflux disease without esophagitis; R93.8 Abnormal findings on diagnostic imaging of other specified body structures; K80.20 Calculus of gallbladder without cholecystitis without obstruction; Z79.82 Long term (current) use of aspirin; Z79.4 Long term (current) use of insulin; K59.00 Constipation, unspecified; F32.9 Major depressive disorder, single episode, unspecified; F41.9 Anxiety disorder, unspecified; G40.909 Epilepsy, unspecified, not intractable, without status epilepticus; M19.90 Unspecified osteoarthritis, unspecified site; K76.0 Fatty (change of) liver, not elsewhere classified; K74.60 Unspecified cirrhosis of liver; G89.29 Other chronic pain; M54.5 Low back pain; Z86.14 Personal history of Methicillin resistant Staphylococcus aureus infection; Z86.19 Personal history of other infectious and parasitic diseases; Z95.1 Presence of aortocoronary bypass graft; I25.10 Atherosclerotic heart disease of native coronary artery without angina pectoris; Z88.2 Allergy status to sulfonamides; Z88.5 Allergy status to narcotic agent; Z88.6 Allergy status to analgesic agent; Z83.3 Family history of diabetes mellitus; Z82.49 Family history of ischemic heart disease and other diseases of the circulatory system; Z82.5 Family history of asthma and other chronic lower respiratory diseases; Z83.49 Family history of other endocrine, nutritional and metabolic diseases; Z87.442 Personal history of urinary calculi
CPT/HCPCS: 74177; 76705; 76856; 80048; 80053; 80076; 81003; 82948; 83605; 83690; 85025; 85027; 87040; 87086; 94640; 94640 76; 94799; 99281; 99284; C9113; G0378; J0360; J1650; J2405; J2765; J7030